=== PATIENT | male | born 1975 | race Caucasian/White ===

== ENCOUNTER 2024-01-13 19:55 | Observation (INO) ==
--- OUTSIDE RECORDS SUMMARY | 2024-01-13 20:01 | External Medical Summary | Continuity of Care Document ---
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 Role Phone No, PCP Primary Care Physician Unavailab le Encounter [facility] [id number] Date(s): 09/25/23 - 09/25/23 [facility] [address] [facility] [address] [facility] Medicine [address] [place] [id number] Encounter Diagnosis S/P left rotator cuff repair(Discharge Diagnosis) - 09/25/23 Discharge Disposition: Home or Self Care Attending Physician: MD Tabor Paul K Allergies, Adverse Reactions, Alerts No Known Allergies Assessment and Plan Extracted from: Title:Randy Tabor Author:Eulalio Ge Date:09/25/23 IMPRESSION:48 Yearsold Male s/p left shoulder arthroscopy, rotator cuff repair, biceps tenodesis DOS: 08/08/2023. PLAN: - Arthroscopic images were reviewed with the patient at today's visit - Continue with rehab per protocol - May discontinue use of sling. Use sling in high risk situations. - Patient is restricted on lifting activities for next 6-8 weeks. - Patient should continue off work. Re-evaluate in 6 weeks. - ATIYA Shaw was present for the duration of the visit. All questions were answered -Follow up in 6 weeks Medications No Known Medications Mental Status 09/25/23 Barriers to Learning one year None evide nt Mandatory Health Literacy Documentation Yes Health Literacy Communication Barriers N ever Primary Language Greenlandic Problem List Condition Confirmation Course Effective Dates Status Health St [facility] Informant Dystonic tremor Confirmed Active MRSA 1 Confirmed 05/29/11 Active Preop examination Confirmed Active Left rotator cuff tear Confirmed Active 1abscess Diagnosis Diagnosis Type Effective Dates Health Status Cl inical Service Informant S/P left rotator cuff repair Discharge Diagnosis 09/25/23 Procedures Procedure Date Related Diagnosis Body Site Status Eye repair 1 Completed Repair of retina Complete d 1bilateral Social History Social History Type Response Smoking Status Never smoked cigaret graham Sex Male Ortho Outpt Note * Eulalio Ge: PERFORM, MODIFY Event Display: Ortho Outpt Note Authored Date: [id number] Chief Complaint s/p L shoulder History of Present Illness Tala Myers presents today with hisNCMforf/u s/pleft shoulder arthroscopy, rotator cuff repair, biceps tenodesis DOS: 08/08/2023. He is doing well. He has not had pain or swelling. He has tightness and a dull ache in his shoulder. His ROM full according to the patient for the last 3 weeks. He is no loner taking medications. Overall, he is doing well and pleased with his progression. Review of Systems A 14 point review of systems isavailable in the EMR. Physical Exam Focusing onthe patient'sleft upper extremity: Sensation intact to the median, radial, ulnar, and axillary nerve distributions. Incisions are well healed ROM: Forward flexion 170 vs 180 / External rotation 80/ Internal rotation L2 vs T10 Diagnostic Results I obtained and personally interpreted4 views of theright shoulder which shows the hardware in good position and an otherwise normal study. Assessment/Plan IMPRESSION:48 YearsoldMale s/p left shoulder arthroscopy, rotator cuff repair, biceps tenodesis DOS: 08/08/2023. PLAN: - Arthroscopic images were reviewed with the patient at today's visit - Continue with rehab per protocol - May discontinue use of sling. Use sling in high risk situations. - Patient is restricted on lifting activities for next 6-8 weeks. - Patient should continue off work. Re-evaluate in 6 weeks. - ATIYA Shaw was present for the duration of the visit. All questions were answered -Follow up in 6 weeks Attestation IEulalio, scribing for and in the presence of, Randy Tabor, on this date,09/25/2023 11:04:13. Problem List/Past Medical History Ongoing Dystonic tremor Left rotator cuff tear MRSA Preop examination Procedure/Surgical History Repair of retinaEye repair Medications carbidopa-levodopa(Sinemet 25 mg-100 mg oral tablet), 2 tab, PO, tid, 6 refills diclofenac(diclofenac sodium 75 mg oral delayed release tablet), 75 mg= 1 tab, PO, bid, PRN, 1 refills oxyCODONE(oxyCODONE 5 mg oral tablet), 5 mg= 1 tab, PO, q4h, PRN Allergies NKA Social History Smoking Status Never smoked cigarettes Family History COPD: PGF. Parkinson disease: PGM.Negative: PGF. Health Status Family Member(s) Recommendations Health Maintenance Pending(in the next year) OverDue Adult Influenza Vaccine due01/05/23and every 1year Due Adult COVID-19 Vaccination due09/25/23Unknown Frequency Adult Social Determinants of Health Screening due09/25/23Unknown Frequency Adult Tdap/Td Vaccine due09/25/23nown Frequency Colorectal Cancer Screening due09/25/23nown Frequency Hepatitis C Screening due09/25/23One-time only Lipid Screening due09/25/23nown Frequency Shingles Vaccine due09/25/23One-time only Due In Future Body Mass Index not due until08/07/24and every 366day Satisfied(in the past 1 year) Satisfied Body Mass Index on08/07/23.Satisfied by HEMALATHA Jones Natasha Electronic Signature on File Electronically Reviewed/Signed by: Eulalio Ge Author Signature Dt/Tm:09/25/2023 11:33 AM Electronically Reviewed/Signed by: Randy Tabor MD Cosigner Signature Dt/Tm: 09/25/2023 12:19PM Division of Sports Medicine DS Patient Care team information Care Team Related Persons Name: BOBBY COHEN Address: [employer] [address] [place] [address]
--- OUTSIDE RECORDS SUMMARY | 2024-01-13 20:01 | External Medical Summary | Continuity of Care Document ---
Author Name Unknown Organization 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 [address] [address] [facility] Medicine [address] [place] [phone] Encounter Diagnosis S/P left rotator cuff repair(Discharge Diagnosis) - 12/04/23 Discharge Disposition: Home or Self Care Attending Physician: MD Tabor Paul K Allergies, Adverse Reactions, Alerts No Known Allergies Assessment and Plan Extracted from: Title:Randy Tabor Author:Eulalio Ge Date:12/04/23 IMPRESSION:48 Yearsold Male s/pleft shoulder arthroscopy, rotator cuff repair, biceps tenodesis DOS: 08/08/2023. PLAN: - Continue with rehab per protocol focusing on ROM and strengthening. - Patient may do light work with a 20 lbs lifting restriction. Follow up in 2 months. Medications No Known Medications Mental Status 12/04/23 Barriers to Learning one year None evide nt Mandatory Health Literacy Documentation Yes Health Literacy Communication Barriers N ever Primary Language Serbian Problem List Condition Confirmation Course Effective Dates Status Health [facility] Informant Dystonic tremor Confirmed Active MRSA 1 Confirmed 05/29/11 Active Preop examination Confirmed Active Left rotator cuff tear Confirmed Active 1abscess Diagnosis Diagnosis Type Effective Dates Health Status Cl inical Service Informant S/P left rotator cuff repair Discharge Diagnosis 12/04/23 Procedures Procedure Date Related Diagnosis Body Site Status Eye repair 1 Completed Repair of retina Complete d 1bilateral Social History Social History Type Response Smoking Status Never smoked cigaret graham Sex Male Ortho Outpt Note * Eulalio Ge: PERFORM, MODIFY Event Display: Ortho Outpt Note Authored Date: [id number] Chief Complaint f/u l shoulder History of Present Illness Tala Myers presents today with his NCM for f/u s/pleft shoulder arthroscopy, rotator cuff repair, biceps tenodesis DOS: 08/08/2023. He just started strengthening his RTC at PT. He has some tightness and limited strength at this time. He notes that his discomfort is more fatigue than pain. He is working with PT twice a week as well as a HEP. Overall, he is doing well. Review of Systems A 14 point review of systems isavailable in the EMR. Physical Exam Focusing onthe patient'sleft upper extremity: Sensation intact to the median, radial, ulnar, and axillary nerve distributions. Incisions are well healed ROM: Forward flexion 175 vs 185 / Abduction 140 / External rotation 70, vs75 / [id number] vs T6 At 90 degrees of abduction, internal rotation is50 vs 70 5-/5 strength with external rotation with arm at the side 5-/5 strength with internal rotation with arm at the side 5-/5 supraspinatus testing Minimal atrophy Assessment/Plan IMPRESSION:48 YearsoldMale s/pleft shoulder arthroscopy, rotator cuff repair, biceps tenodesis DOS: 08/08/2023. PLAN: - Continue with rehab per protocol focusing on ROM and strengthening. - Patient may do light work with a 20 lbs lifting restriction. Follow up in 2 months. Attestation I, Eulalio Ge, scribing for and in the presence of, Randy Tabor, on this date,12/04/2023 15:15:38. Problem List/Past Medical History Ongoing Dystonic tremor Left rotator cuff tear MRSA Preop examination Procedure/Surgical History Repair of retinaEye repair Allergies NKA Social History Smoking Status Never smoked cigarettes Family History COPD: PGF. Parkinson disease: PGM.Negative: PGF. Health Status Family Member(s) Recommendations Health Maintenance Pending(in the next year) OverDue Adult Influenza Vaccine due01/05/23and every 1year Due Adult COVID-19 Vaccination due12/04/23Unknown Frequency Adult Social Determinants of Health Screening due12/04/23Unknown Frequency Adult Tdap/Td Vaccine due12/04/23Unknown Frequency Colorectal Cancer Screening due12/04/23Unknown Frequency Hepatitis C Screening due12/04/23One-time only Lipid Screening due12/04/23Unknown Frequency Shingles Vaccine due12/04/23One-time only Due In Future Body Mass Index not due until08/07/24and every day Satisfied(in the past 1 year) Satisfied Body Mass Index on08/07/23.Satisfied by HEMALATHA Jones Natasha Electronic Signature on File Electronically Reviewed/Signed by: Eulalio Ge Author Signature Dt/Tm:12/04/2023 03:26 PM Electronically Reviewed/Signed by: Randy Tabor MD Cosigner Signature Dt/Tm: 12/05/2023 09:45AM Division of Sports Medicine DS Patient Care team information Care Team Related Persons Name: BOBBY COHEN Address: [facility] [address] [place] [address]
--- OUTSIDE RECORDS SUMMARY | 2024-01-13 20:01 | External Medical Summary | Continuity of Care Document ---
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 Name Role Phone No, PCP Primary Care Physician Unavailab le Encounter [facility] [id number] Date(s): 11/06/23 - 11/06/23 [facility] [address] [address] [facility] Medicine [address] [place] [id number] Encounter Diagnosis S/P rotator cuff repair(Discharge Diagnosis) - 11/06/23 Discharge Disposition: Home or Self Care Attending Physician: MD Tabor Paul K Allergies, Adverse Reactions, Alerts No Known Allergies Assessment and Plan Extracted from: Title:Randy Tabor Author:Eulalio Ge Date:11/06/23 IMPRESSION:48 Yearsold Male s/pleft shoulder arthroscopy, rotator cuff repair, biceps tenodesis DOS: 08/08/2023. PLAN: - Continue with formal PT and massaging as previous. - Patient is limited to sedentary job duties if able to be accommodated. Follow up in 1 month Medications No Known Medications Mental Status 11/06/23 Barriers to Learning one year None evide nt Mandatory Health Literacy Documentation Yes Health Literacy Communication Barriers N ever Primary Language Lao Problem List Condition Confirmation Course Effective Dates Status Health St [facility] Informant Dystonic tremor Confirmed Active MRSA 1 Confirmed 05/29/11 Active Preop examination Confirmed Active Left rotator cuff tear Confirmed Active 1abscess Diagnosis Diagnosis Type Effective Dates Health Status Cl inical Service Informant S/P rotator cuff repair Discharge Diagnosis 11/06/23 Procedures Procedure Date Related Diagnosis Body Site Status Eye repair 1 Completed Repair of retina Complete d 1bilateral Social History Social History Type Response Smoking Status Never smoked cigaret graham Sex Male Ortho Outpt Note * Eulalio Ge: PERFORM, MODIFY Event Display: Ortho Outpt Note Authored Date: [id number] Chief Complaint f/u L shoulder History of Present Illness Tala Myers presents today with his NCMforf/u s/pleft shoulder arthroscopy, rotator cuff repair, biceps tenodesis DOS: 08/08/2023. he is doing better but stillhas some tightness from his surgery. He is still limited with his internal rotation. He has been working with formal PT twice a week. He never has serious pain just tiredness and tightness. He has not taken any medication for his pain. Review of Systems A 14 point review of systems isavailable in the EMR. Physical Exam Focusing onthe patient'sleft upper extremity: Sensation intact to the median, radial, ulnar, and axillary nerve distributions. Incisions are well healed ROM: Forward flexion 170/ Abduction 140 / External rotation 65, vs 80 / Internal rotation L4 vs T6/ Passive ER to 75 / Passive forward elevation to 175 / Passive abduction 160 5-/5 strength with external rotation with arm at the side 5/5 strength with internal rotation with arm at the side Pain with empty can test + Tenderness over the trapezius Assessment/Plan IMPRESSION:48 YearsoldSome s/pleft shoulder arthroscopy, rotator cuff repair, biceps tenodesis DOS: 08/08/2023. PLAN: - Continue with formal PT and massaging as previous. - Patient is limited to sedentary job duties if able to be accommodated. Follow up in 1 month Attestation Eulalio Horn, scribing for and in the presence of, Randy Tabor, on this date,11/06/2023 11:29:30. Problem List/Past Medical History Ongoing Dystonic tremor Left rotator cuff tear MRSA Preop examination Procedure/Surgical History Repair of retinaEye repair Allergies NKA Social History Smoking Status Never smoked cigarettes Family History COPD: PGF. Parkinson disease: PGM.Negative: PGF. Health Status Family Member(s) Recommendations Health Maintenance Pending(in the next year) OverDue Adult Influenza Vaccine due01/05/23and every 1year Due Adult COVID-19 Vaccination due11/06/23Unknown Frequency Adult Social Determinants of Health Screening due11/06/23Unknown Frequency Adult Tdap/Td Vaccine due11/06/23Unknown Frequency Colorectal Cancer Screening due11/06/23Unknown Frequency Hepatitis C Screening due11/06/23One-time only Lipid Screening due11/06/23Unknown Frequency Shingles Vaccine due11/06/23One-time only Due In Future Body Mass Index not due until08/07/24and every day Satisfied(in the past 1 year) Satisfied Body Mass Index on08/07/23.Satisfied by HEMALATHA Jones Natasha Electronic Signature on File Electronically Reviewed/Signed by: Eulalio Ge Author Signature Dt/Tm:11/06/2023 11:43 AM Electronically Reviewed/Signed by: Randy Tabor MD Cosigner Signature Dt/Tm: 11/06/2023 12:34PM Division of Sports Medicine DS Patient Care team information Care Team Related Persons Name: BOBBY COHEN Address: [facility] [address] [place]
[2024-01-13 20:45] LABS: Appearance Urine Turbid (Clear); Bacteria Urine Automated None Seen (None Seen); Bilirubin Urine 1+ (Negative); Blood Urine 3+ (Negative); Cast Urine Automated 0-2 /lpf (0-2); Color Urine Orange; Epithelial Cell Urine Auto 0-2 /hpf (0-2); Glucose Urine UA Negative (Negative); Ketones Urine Trace (Negative); Leukocyte Esterase Urine 1+ (Negative); Mucus Urine Present (None Prsent); Nitrite Urine Negative (Negative); Protein Urine 2+ (Negative); RBC Urine Automated >20 /hpf (0-2); Specific Gravity Urine 1.029 (1.000-1.030); Urobilinogen Urine Negative (Negative); pH Urine 5.5 (4.5-7.5)
[2024-01-13 21:01] LABS: Basophils # (auto) 0.04 K/uL (0.00-0.20); Basophils % (auto) 0.4 %; Eosinophils # (auto) 0.04 K/uL (0.00-0.50); Eosinophils % (auto) 0.4 %; Hematocrit (blood only) 46.9 % (42.0-52.0); Hemoglobin 15.9 g/dl (14.0-18.0); Immature Granulocytes # (auto) 0.02 K/uL (0.01-0.20); Immature Granulocytes % (auto) 0.2 %; Lymphocytes # (auto) 1.44 K/uL (1.20-3.40); Lymphocytes % (auto) 15.4 %; Mean Corpuscular Hemoglobin 30.8 pg (25.0-34.0); Mean Corpuscular Hgb Conc 33.9 g/dL (32.0-36.0); Mean Corpuscular Volume 90.7 fL (80.0-100.0); Mean Platelet Volume 9.5 fL (9.4-12.4); Monocytes # (auto) 0.57 K/uL (0.11-0.59); Monocytes % (auto) 6.1 %; Neutrophils # (auto) 7.25 K/uL (1.40-6.50); Neutrophils % (auto) 77.5 %; Platelet Count 234 K/uL (130-400); RDW Coefficient of Variation 11.8 % (11.5-14.5); RDW Standard Deviation 39.3 fL (36.4-46.3); Red Blood Count 5.17 M/uL (4.70-6.10); White Blood Count 9.36 K/ul (4.8-10.8)
[2024-01-13] MEDS: ONDANSETRON INJ 2 MG/ML 2 ML VIAL IV STA (21:02)
[2024-01-13] MEDS: MoRPHine SULFATE 4 MG/ML 1 ML CARP\\VIAL IV STA (21:02)
[2024-01-13] MEDS: SODIUM CHLORIDE 0.9% 1,000 ML IV ONE (21:02)
[2024-01-13 21:17] LABS: Albumin Level 4.9 gm/dl (3.4-5.0); BUN Creatinine Ratio 7.7 (10-20); Bilirubin,Total 0.8 mg/dl (0.2-1.0); Calcium 9.8 mg/dl (8.6-10.3); Creatinine Clr Calc Pharmacy 55.7 ml/min; Est GFR (African American) 59.6 ml/min; Est GFR (Non-African American) 51.4 ml/min; Globulin 2.5 gm/dl (2.5-4.0); Potassium 3.9 mmol/L (3.5-5.1); Total Protein 7.4 gm/dl (6.0-8.3)
[2024-01-13] MEDS: fentaNYL citrate PF 100 MCG/2 ML VIAL IV STA (21:34)
--- NOTE | 2024-01-13 21:39 | Emergency Department Note ---
Impression & Plan Acute left flank pain, Calculus of distal left ureter, Complicated urinary tract infection, Hydroureteronephrosis, AMIRAH (acute kidney injury) ED Provider Note HISTORY OF PRESENT ILLNESS: Patient is a 48-year-old male presenting with left flank pain. Patient reports symptoms started yesterday. He locates the pain to the left lower quadrant with radiation into his left CVA and across his back. He reports this feels like his previous kidney stone but "significantly more painful than before." He reports nausea but denies any vomiting. Reports dysuria but denies any hematuria. He denies requiring any surgical interventions for his previous kidney stones. He denies any fevers. Denies any history of abdominal surgeries. Patient denies any diarrhea. Denies any falls or recent back injury. ROS: as above PHYSICAL EXAM: Constitutional: Patient appears in no acute distress. HENT: Head: Normocephalic and atraumatic. Eyes: EOMI, PERRL Mouth/Throat: Mucous membranes moist. Neck: Trachea midline. Neck supple. Cardiovascular: RRR, No murmurs, rubs or gallops. Intact distal pulses. Pulmonary/Chest: No respiratory distress. Breath sounds clear and equal bilaterally. No wheezes or rales. Abdominal: Abdomen soft, no tenderness, rebound or guarding. Back: No midline spinal tenderness, no paraspinal tenderness. Left CVA tenderness Musculoskeletal: No edema, tenderness or deformity noted. Skin: Warm and dry. No rash, erythema, pallor or cyanosis Neurological: Alert and keenly responsive. CN II-XII grossly intact, moving all extremities equally and fully. MDM: - Vitals signs stable - History obtained via patient. History as above. - Chronic conditions affecting care: Kidney stone - Differential diagnoses include, but are not limited to: UTI; ureteral stone; diverticulitis; muscle spasm - Order placed for continuous cardiac monitoring. At this time, monitor showed rate of 60 bpm with normal sinus rhythm, per my interpretation. - External medical records reviewed. Primary care visit note dated 08/17/2023 was reviewed. Patient was seen for an acute visit for upper respiratory infection. - Laboratory workup interpreted by myself showed normal WBC; stable electrolytes; AMIRAH (Cr 1.55); normal lipase; normal liver function - UA showed blood and evidence of infection. 2g IV rocephin ordered. - CT abdomen/pelvis wo contrast showed 5 mm stone in distal left ureter with mild left hydroureteronephrosis. - Patient initially given 4 mg IV morphine, 4 mg IV zofran and 1L NS in ER. However, on reassessment, the patient was still complaining of significant pain. Given 50 mcg of IV fentanyl. - On reassessment, patient reports feeling improved but still having some discomfort. - Discussed case with urology ARABELLA on-call, Oli Shah. He agreed with IV antibiotics and admission to medicine and urology will be on his consultation. - Discussion was had with case therapist about patient's case and need for admission - Hospitalist consulted for admission - Patient admitted to [facility] service for further evaluation and management. ASSESSMENT AND PLAN: Diagnosis: Acute left flank pain; distal left ureteral stone; left hydroureteronephrosis; complicated UTI; AMIRAH Plan: Admit Past Med/Surg History Problem List (Updated 01/13/24 @ 23:20 by Genevieve Billy MD) AMIRAH (acute kidney injury) (Acute) Hydroureteronephrosis (Acute) Complicated urinary tract infection (Acute) Calculus of distal left ureter (Acute) Acute left flank pain (Acute) S/P left rotator cuff repair 08-08-23 [facility], Dr Tabor Occasional tremors Medical History (Updated 01/13/24 @ 23:20 by Genevieve Billy MD) Kidney stones no sx, still has them currently Encounter for pre-operative examination Surgical History Hx of arthroscopy of right knee Hx of arthroscopy of left knee History of eye surgery multiple-yrs ago Social History Smoking Status: Never smoker Second Hand Exposure: No; Do You Dip or Chew Tobacco: No; Hx Alcohol Use: Yes Alcohol type: beer, wine and hard liquor Hx Substance Use: No Preferred Language: Tristanian Communication Ability: Effective Jeep Driver Required: No Beliefs That Will Affect Care: None Current Living Situation: Parent Feels Safe at Home: Yes Assistive Devices: None Allergies Allergies Allergy/AdvReac Type Severity Reaction Status Date / Time No Known Drug Allergies Allergy Mild Unknown Verified 01/13/24 22:00 Home Meds Home Medications Medication Instructions Recorded Confirmed No Known Home Medications 01/13/24 01/13/24 Results & Data (ED) Vital Signs Vital Signs - 24 hr 01/13/24 20:04 01/13/24 22:01 Temperature 36.6 C Temperature Source Oral Pulse Rate 60 Pulse Rate [Finger] 70 Respiratory Rate 18 16 Blood Pressure 129/81 Blood Pressure [Left Arm] 138/86 Blood Pressure Mean 97 Blood Pressure Mean [Left Arm] 103 Pulse Oximetry 97 95 Oxygen Delivery Method Room Air Room Air Sepsis Recent Fever Within 48 Hours No Sepsis New/Unexplained Change in Mental Status No Sepsis Action Taken by Nursing No Action Required Laboratory Data 01/13/24 20:50 01/13/24 20:50 Lab Results 01/13/24 01/13/24 Range/Units 20:10 20:50 WBC 9.36 (4.8-10.8) K/ul RBC 5.17 (4.70-6.10) M/uL Hgb 15.9 (14.0-18.0) g/dl Hct 46.9 (42.0-52.0) % MCV 90.7 (80.0-100.0) fL MCH 30.8 (25.0-34.0) pg MCHC 33.9 (32.0-36.0) g/dL RDW Std Deviation 39.3 (36.4-46.3) fL RDW Coeff of En 11.8 (11.5-14.5) % Plt Count 234 (130-400) K/uL MPV 9.5 (9.4-12.4) fL Immature Gran % (Auto) 0.2 % Neut % (Auto) 77.5 % Lymph % (Auto) 15.4 % [place] % (Auto) 6.1 % Eos % (Auto) 0.4 % Baso % (Auto) 0.4 % Neut # (Auto) 7.25 H (1.40-6.50) K/uL Lymph # (Auto) 1.44 (1.20-3.40) K/uL [place] # (Auto) 0.57 (0.11-0.59) K/uL Eos # (Auto) 0.04 (0.00-0.50) K/uL Baso # (Auto) 0.04 (0.00-0.20) K/uL Immature Gran # (Auto) 0.02 (0.01-0.20) K/uL Sodium 138 (136-145) mmol/L Potassium 3.9 (3.5-5.1) mmol/L Chloride 103 (98-107) mmol/L Carbon Dioxide 28 (21-32) mmol/L Anion Gap 7 (3-11) BUN 12 (6-23) mg/dl Creatinine 1.55 H (0.6-1.4) mg/dl Est Cr Clr Drug Dosing 55.7 ml/min Est GFR ( Amer) 59.6 ml/min Est GFR (Non-Af Amer) 51.4 ml/min BUN/Creatinine Ratio 7.7 L (10-20) Glucose 118 H (70-99(Fasting)) mg/dl Calcium 9.8 (8.6-10.3) mg/dl Total Bilirubin 0.8 (0.2-1.0) mg/dl AST 14 (13-39) U/L ALT 9 (7-52) U/L Alkaline Phosphatase 39 (34-104) U/L Total Protein 7.4 (6.0-8.3) gm/dl Albumin 4.9 (3.4-5.0) gm/dl Globulin 2.5 (2.5-4.0) gm/dl Albumin/Globulin Ratio 2.0 (0.9-2) Lipase 21 (11-82) U/L Urine Color [place] Urine Appearance Turbid A (Clear) Urine pH 5.5 (4.5-7.5) Ur Specific [place] 1.029 (1.000-1.030) Urine Protein 2+ H (Negative) Urine Glucose (UA) Negative (Negative) Urine Ketones Trace H (Negative) Urine Blood 3+ H (Negative) Urine Nitrite Negative (Negative) Urine Bilirubin 1+ H (Negative) Urine Urobilinogen Negative (Negative) Ur Leukocyte Esterase 1+ H (Negative) Urine WBC (Auto) 11-20 H (0-5) /hpf Urine RBC (Auto) >20 H (0-2) /hpf U Hyaline Cast (Auto) 0-2 (0-2) /lpf U Epithel Cells (Auto) 0-2 (0-2) /hpf Urine Bacteria (Auto) None Seen (None Seen) Urine Mucus Present A (None Prsent) Administered Medications Ceftriaxone Sodium (Rocephin) 2,000 mg in 50 mls @ 100 mls/hr IV NOW STA Stop: 01/13/24 23:20 Last Admin: 01/13/24 23:00 Dose: 100 mls/hr Documented By: CASTRO Discontinued Medications Fentanyl Citrate (Fentanyl Citrate Pf 100 Mcg/2 Ml Vial) 50 mcg IV NOW STA Stop: 01/13/24 21:31 Last Admin: 01/13/24 21:34 Dose: 50 mcg Documented By: GEOVANY Sodium Chloride (Nss) 1,000 mls @ 999 mls/hr IV .Q1H1M ONE Stop: 01/13/24 21:52 Last Infusion: 01/13/24 22:03 Dose: Infused Documented By: Admin: 01/13/24 21:02 Dose: 999 mls/hr Documented By: MADISON Morphine Sulfate (Morphine Sulfate 4 Mg/Ml 1 Ml Carp\\Vial) 4 mg IV NOW STA Stop: 01/13/24 20:53 Last Admin: 01/13/24 21:02 Dose: 4 mg Documented By: MADISON Ondansetron HCl (Ondansetron Inj 2 Mg/Ml 2 Ml Vial) 4 mg IV NOW STA Stop: 01/13/24 20:53 Last Admin: 01/13/24 21:02 Dose: 4 mg Documented By: MADISON Tamsulosin HCl (Tamsulosin Hcl 0.4 Mg Cap) 0.4 mg PO NOW ONE Stop: 01/13/24 22:52 Last Admin: 01/13/24 23:00 Dose: 0.4 mg Documented By: CASTRO Imaging Data Radiologist's Impression: Abdomen/Pelvis CT 01/13/24 20:54 Exam(s): CT ABDOMEN + PELVIS Without Contrast EXAM: CT Abdomen and Pelvis Without Intravenous Contrast CLINICAL HISTORY: Reason for exam: L flank pain. TECHNIQUE: Axial computed tomography images of the abdomen and pelvis without intravenous contrast. CTDI is 11.1 mGy and DLP is 536.65 mGy-cm. Automated exposure control was utilized for the study. A dose lowering technique was utilized adhering to the principles of ALARA. COMPARISON: 06/05/22 FINDINGS: Lung bases: Unremarkable. No mass. No consolidation. ABDOMEN: Liver: Unremarkable. Gallbladder and bile ducts: Unremarkable. No calcified stones. No ductal dilation. Pancreas: Unremarkable. No ductal dilation. Spleen: Unremarkable. No splenomegaly. Adrenals: Unremarkable. No mass. Kidneys and ureters: 5 mm distal left ureteral calculus with mild left hydroureteronephrosis. Multiple subcentimeter nonobstructing renal calculi bilaterally demonstrated. Stomach and bowel: Unremarkable. No obstruction. No mucosal thickening. PELVIS: Appendix: No findings to suggest acute appendicitis. Bladder: Unremarkable. No stones. Reproductive: Unremarkable as visualized. ABDOMEN and PELVIS: Intraperitoneal space: Unremarkable. No free air. No significant fluid collection. Bones/joints: No acute fracture. No dislocation. Soft tissues: Unremarkable. Vasculature: Unremarkable. No abdominal aortic aneurysm. Lymph nodes: Unremarkable. No enlarged lymph nodes. Other findings: Severe L5-S1 disc space narrowing. IMPRESSION: 5 mm distal left ureteral calculus with mild left hydroureteronephrosis. Electronically signed by: Boo Callahan MD 01/13/24 22:44 PM Discharge Plan Visit Data Chief Complaint: Flank Pain Stated Complaint: FLANK PAIN, LEFT SIDE ED Provider: Genevieve Billy Discharge Problem: Acute left flank pain, Calculus of distal left ureter, Complicated urinary tract infection, Hydroureteronephrosis, AMIRAH (acute kidney injury) Forms Stand Alone Forms: [facility] [employer] Prescriptions Prescriptions: No Action No Known Home Medications Referrals Referrals: Keven Jefferson DO [Primary Care Provider] -
--- NOTE | 2024-01-13 22:45 | CT Scan Report ---
Exam(s): CT ABDOMEN + PELVIS Without Contrast EXAM: CT Abdomen and Pelvis Without Intravenous Contrast CLINICAL HISTORY: Reason for exam: L flank pain. TECHNIQUE: Axial computed tomography images of the abdomen and pelvis without intravenous contrast. CTDI is 11.1 mGy and DLP is 536.65 mGy-cm. Automated exposure control was utilized for the study. A dose lowering technique was utilized adhering to the principles of ALARA. COMPARISON: 06/05/22 FINDINGS: Lung bases: Unremarkable. No mass. No consolidation. ABDOMEN: Liver: Unremarkable. Gallbladder and bile ducts: Unremarkable. No calcified stones. No ductal dilation. Pancreas: Unremarkable. No ductal dilation. Spleen: Unremarkable. No splenomegaly. Adrenals: Unremarkable. No mass. Kidneys and ureters: 5 mm distal left ureteral calculus with mild left hydroureteronephrosis. Multiple subcentimeter nonobstructing renal calculi bilaterally demonstrated. Stomach and bowel: Unremarkable. No obstruction. No mucosal thickening. PELVIS: Appendix: No findings to suggest acute appendicitis. Bladder: Unremarkable. No stones. Reproductive: Unremarkable as visualized. ABDOMEN and PELVIS: Intraperitoneal space: Unremarkable. No free air. No significant fluid collection. Bones/joints: No acute fracture. No dislocation. Soft tissues: Unremarkable. Vasculature: Unremarkable. No abdominal aortic aneurysm. Lymph nodes: Unremarkable. No enlarged lymph nodes. Other findings: Severe L5-S1 disc space narrowing. IMPRESSION: 5 mm distal left ureteral calculus with mild left hydroureteronephrosis. Electronically signed by: Boo Callahan MD 01/13/24 22:44 PM
[2024-01-13] MEDS: cefTRIAXone SODIUM 2,000 MG/50 ML BAG IV STA (23:00)
[2024-01-13] MEDS: TAMSULOSIN HCL 0.4 MG CAP PO ONE (23:00)
--- NOTE | 2024-01-13 23:05 | Urology Consultation ---
Date of Consultation January 13, 2024 Assessment & Plan (1) Kidney stones: I discussed with treat emergency room physician and the patient is being admitted on the hospital service. From a urologic perspective we recommend the following: Provide analgesics Provide antiemetics Provide Flomax for expulsive therapy Provide IV fluid for hydration Implement n.p.o. status at midnight tonight Due to his abnormal urinalysis he has been treated empirically with Rocephin. This can continue and antibiotics be tailored based on pending culture results At the present time the patient is nontoxic-appearing. He is noted to be normotensive without tachycardia or fever. He does not have leukocytosis. He does have a slight acute kidney injury. I do feel conservative measures as outlined above are an appropriate course of action. As the stone is noted to be distal in nature hopefully will pass on its own. The patient will be reevaluated in the morning of 01/14/2024 and determination be made if patient requires any procedural intervention. Additional recommendations to be forthcoming based on his clinical course as it unfolds History of Present Illness Reason for Consultation: Nephrolithiasis History of Present Illness This 48-year-old male who presented the emergency department secondary to left flank pain. He notes that the pain has been present for approximate 24 hours. He has had associated nausea without vomiting. He denies any fevers, shakes, or chills. He notes that the pain does radiate to the front of his abdomen without modifying factors. He notes he does not have any dysuria or hematuria. He has had kidney stones in the past but says that he was able to pass this on his own without procedural intervention. Since arrival to the hospital the patient has had labs and imaging which independent reviewed. CT scan of the abdomen pelvis showed the patient had a 5 mm distal left ureteral stone causing mild left hydronephrosis. Labs included CBC her white blood cell count, hemoglobin, hematocrit, platelet count were all normal. Chemistry profile showed sodium and potassium as well as the BUN were normal. His creatinine had a slight elevation at 1.55. Urinalysis showed turbid urine with negative nitrites and 1+ leukocyte Estrace. He had 11-20 white blood cells per high-power field and no bacteria. At the time my interview he was resting comfortably in bed he was no distress. Allergies Allergy/AdvReac Type Severity Reaction Status Date / Time No Known Drug Allergies Allergy Mild Unknown Verified 07/07/24 22:00 Home Medications Medication Instructions Recorded Confirmed Type No Known Home Medications 01/13/24 01/13/24 History Patient History Medical History (Updated 01/13/24 @ 23:03 by Oli Shah PA-C) Kidney stones no sx, still has them currently Encounter for pre-operative examination Surgical History Hx of arthroscopy of right knee Hx of arthroscopy of left knee History of eye surgery multiple-yrs ago Social History Smoking Status: Never smoker Second Hand Exposure: No; Do You Dip or Chew Tobacco: No; Hx Alcohol Use: Yes Alcohol type: beer, wine and hard liquor Hx Substance Use: No Preferred Language: Hebrew Communication Ability: Effective Last Ironer Required: No Beliefs That Will Affect Care: None Current Living Situation: Parent Feels Safe at Home: Yes Assistive Devices: None Review of Systems Review of Systems: All systems reviewed & are unremarkable except as noted in HPI & below Physical Exam Constitutional: WD/WN, vitals as above Eyes: no conjunctival abnormality ENMT: Ears: no hearing impairment and no external ear abnormality Mouth: no oropharynx abnormality Neck: trachea midline Respiratory: normal respiratory effort; no respiratory distress and no labored breathing Cardiovascular: Rate/Rhythm: regular rate and regular rhythm Gastrointestinal (Abdomen): Abdomen is soft and nonrigid. Patient did have some slight tenderness with palpation on the left side of his abdomen. There is no rebound tenderness or guarding. Musculoskeletal: No calf tenderness Skin: no rashes Neurologic: moves all extremities Psychiatric: A+Ox3, euthymic affect Genitourinary: No CVA tenderness with percussion noted bilaterally at the time of my exam Results & Data Vital Signs (Past 12 Hours) Vital Signs Temp Pulse Pulse Resp BP BP Pulse Ox 01/13/24 22:01 70 16 138/86 95 01/13/24 20:04 36.6 C 60 18 129/81 97 O2 Del Method 01/13/24 22:01 Room Air 01/13/24 20:04 Room Air PG Care Time/CCT Total # of Minutes Spent Total Time Spent with Patient: Total time spent is greater than 50% in coordination of care (as documented) at patient's floor/unit and/or counseling patient: Coding Level of Care Code 43775 IN/OBS CONSULT LVL 5,80M Diagnoses Kidney stones N20.0
--- NOTE | 2024-01-14 00:02 | History & Physical Report ---
Date of Service January 14, 2024 Assessment & Plan (1) Calculus of distal left ureter: (2) Hydroureteronephrosis: (3) Complicated urinary tract infection: (4) AMIRAH (acute kidney injury): Plan 5 mm distal left ureteral calculus/mild left hydroureteronephrosis/UTI- NPO except essential medications Follow urine culture and sensitivity Ceftriaxone 2 g IV daily with first dose given in the ED Acetaminophen 650 mg by mouth every 6 hours as needed for mild pain or fever Morphine sulfate 2 mg IV every 3 hours as needed for moderate pain Morphine sulfate 4 mg IV every 3 hours as needed for severe pain Zofran 4 mg IV every 6 hours as needed Tamsulosin 0.4 mg p.o. now, and at bedtime Status post 1 L normal saline bolus in the ED Continue NSS at 80 mL/h Consult urology, who has assessed the patient in the ED Acute kidney injury- Creatinine 1.55, with baseline 1.24 IV fluids as noted above Recheck laboratories in the a.m. History of Present Illness Chief Complaint: The patient presents to the emergency department with about 24 hours of persistent and worsening left flank and left lower quadrant pain similar to previous kidney stones, but more severe and persistent Primary Care Provider: Keven Jefferson DO The patient is a 48-year-old male with a past medical history including multiple kidney stones, occasional tremors, and status post left rotator cuff repair. The patient has had multiple kidney stones in the past, but has not required stenting. The symptoms developed about 24 hours ago, had been more severe in in tensity and duration. He reports that when he gets the symptoms in the past, he typically will take tamsulosin, and his symptoms would resolve. Allergies Allergy/AdvReac Type Severity Reaction Status Date / Time No Known Drug Allergies Allergy Mild Unknown Verified 01/13/24 22:00 Home Medications Medication Instructions Recorded Confirmed Type No Known Home Medications 01/13/24 01/13/24 History Past Med/Surg History Problem List (Updated 01/13/24 @ 23:20 by Genevieve Billy MD) AMIRAH (acute kidney injury) (Acute) Hydroureteronephrosis (Acute) Complicated urinary tract infection (Acute) Calculus of distal left ureter (Acute) Acute left flank pain (Acute) S/P left rotator cuff repair 08-08-23 [facility], Dr Tabor Occasional tremors Medical History (Updated 01/13/24 @ 23:20 by Genevieve Billy MD) Kidney stones no sx, still has them currently Encounter for pre-operative examination Surgical History Hx of arthroscopy of right knee Hx of arthroscopy of left knee History of eye surgery multiple-yrs ago Social History Smoking Status: Never smoker Tobacco Type: Smokeless Tobacco (Dip or Chew) Second Hand Exposure: No; Do You Dip or Chew Tobacco: Yes; Hx Alcohol Use: Yes Alcohol type: beer Hx Substance Use: No Preferred Language: Colombian Communication Ability: Effective Inspector Penetrant Required: No Beliefs That Will Affect Care: None Current Living Situation: Parent Feels Safe at Home: No Is there a partner from a previous relationship who is making you feel unsafe now?: No Any Concerns about Your Family Situation: No Would You Like to Speak to Someone About Your Situation: No Assistive Devices: None Review of Systems Review of Systems: The patient denies chest pain, palpitations, shortness of breath, dyspnea on exertion, cough, lower extremity swelling, sore throat, fevers, chills, sweats, weight change, fatigue, nausea, vomiting, diarrhea , constipation, blood in urine or stool, dysuria, urinary frequency or urgency, lightheadedness, dizziness, headache, memory loss, loss of consciousness, rash, abnormal bruising or bleeding, imbalance, focal or generalized weakness, numbness or tingling in arms or legs, generalized arthralgias or myalgias, neck pain, or night sweats. The review of systems is otherwise negative other than for that already noted above, and at least 10 systems have been reviewed. Physical Exam Physical Exam: The patient is awake, alert and oriented 3, well developed and well nourished, normocephalic and atraumatic, lying in bed and in no acute distress. HEENT--PERRL, EOMI, mucous membranes and oropharynx mildly dry. Neck--supple. No JVD. No bruits. Thyroid normal, trachea midline, no adenopathy. Heart--normal S1 and S2. No murmurs, rubs or gallops. Lungs--clear bilaterally, no respiratory distress, no accessory muscle use. Abdomen--normal bowel sounds and soft. Mild tenderness over left flank and left lower quadrant of abdomen. Nondistended Extremities--No edema. Dermatologic--normal skin turgor, normal color, no abnormal lymph nodes, no rash. Neurologic--cranial nerves II through XII grossly intact. Rheumatologic--normal range of motion. Psychiatric--normal affect. Results & Data Results & Data Vital Signs (Past 12 Hours) Vital Signs Temp Pulse Pulse Resp BP BP Pulse Ox 01/13/24 22:01 70 16 138/86 95 01/13/24 20:04 36.6 C 60 18 129/81 97 O2 Del Method 01/13/24 22:01 Room Air 01/13/24 20:04 Room Air Laboratory Results Laboratory Results WBC 9.36 K/ul (4.8-10.8) 01/13/24 20:50 RBC 5.17 M/uL (4.70-6.10) 01/13/24 20:50 Hgb 15.9 g/dl (14.0-18.0) 01/13/24 20:50 Hct 46.9 % (42.0-52.0) 01/13/24 20:50 MCV 90.7 fL (80.0-100.0) 01/13/24 20:50 MCH 30.8 pg (25.0-34.0) 01/13/24 20:50 MCHC 33.9 g/dL (32.0-36.0) 01/13/24 20:50 RDW Std Deviation 39.3 fL (36.4-46.3) 01/13/24 20:50 RDW Coeff of En 11.8 % (11.5-14.5) 01/13/24 20:50 Plt Count 234 K/uL (130-400) 01/13/24 20:50 MPV 9.5 fL (9.4-12.4) 01/13/24 20:50 Immature Gran % (Auto) 0.2 % 01/13/24 20:50 Neut % (Auto) 77.5 % 01/13/24 20:50 Lymph % (Auto) 15.4 % 01/13/24 20:50 [place] % (Auto) 6.1 % 01/13/24 20:50 Eos % (Auto) 0.4 % 01/13/24 20:50 Baso % (Auto) 0.4 % 01/13/24 20:50 Neut # (Auto) 7.25 K/uL (1.40-6.50) H 01/13/24 20:50 Lymph # (Auto) 1.44 K/uL (1.20-3.40) 01/13/24 20:50 [place] # (Auto) 0.57 K/uL (0.11-0.59) 01/13/24 20:50 Eos # (Auto) 0.04 K/uL (0.00-0.50) 01/13/24 20:50 Baso # (Auto) 0.04 K/uL (0.00-0.20) 01/13/24 20:50 Immature Gran # (Auto) 0.02 K/uL (0.01-0.20) 01/13/24 20:50 Sodium 138 mmol/L (136-145) 01/13/24 20:50 Potassium 3.9 mmol/L (3.5-5.1) 01/13/24 20:50 Chloride 103 mmol/L (98-107) 01/13/24 20:50 Carbon Dioxide 28 mmol/L (21-32) 01/13/24 20:50 Anion Gap 7 (3-11) 01/13/24 20:50 BUN 12 mg/dl (6-23) 01/13/24 20:50 Creatinine 1.55 mg/dl (0.6-1.4) H 01/13/24 20:50 Est Cr Clr Drug Dosing 55.7 ml/min 01/13/24 20:50 Est GFR ( Amer) 59.6 ml/min 01/13/24 20:50 Est GFR (Non-Af Amer) 51.4 ml/min 01/13/24 20:50 BUN/Creatinine Ratio 7.7 (10-20) L 01/13/24 20:50 Glucose 118 mg/dl (70-99(Fasting)) H 01/13/24 20:50 Calcium 9.8 mg/dl (8.6-10.3) 01/13/24 20:50 Total Bilirubin 0.8 mg/dl (0.2-1.0) 01/13/24 20:50 AST 14 U/L (13-39) 01/13/24 20:50 ALT 9 U/L (7-52) 01/13/24 20:50 Alkaline Phosphatase 39 U/L (34-104) 01/13/24 20:50 Total Protein 7.4 gm/dl (6.0-8.3) 01/13/24 20:50 Albumin 4.9 gm/dl (3.4-5.0) 01/13/24 20:50 Globulin 2.5 gm/dl (2.5-4.0) 01/13/24 20:50 Albumin/Globulin Ratio 2.0 (0.9-2) 01/13/24 20:50 Lipase 21 U/L (11-82) 01/13/24 20:50 Urine Color [place] 01/13/24 20:10 Urine Appearance Turbid (Clear) A 01/13/24 20:10 Urine pH 5.5 (4.5-7.5) 01/13/24 20:10 Ur Specific [employer] 1.029 (1.000-1.030) 01/13/24 20:10 Urine Protein 2+ (Negative) H 01/13/24 20:10 Urine Glucose (UA) Negative (Negative) 01/13/24 20:10 Urine Ketones Trace (Negative) H 01/13/24 20:10 Urine Blood 3+ (Negative) H 01/13/24 20:10 Urine Nitrite Negative (Negative) 01/13/24 20:10 Urine Bilirubin 1+ (Negative) H 01/13/24 20:10 Urine Urobilinogen Negative (Negative) 01/13/24 20:10 Ur Leukocyte Esterase 1+ (Negative) H 01/13/24 20:10 Urine WBC (Auto) 11-20 /hpf (0-5) H 01/13/24 20:10 Urine RBC (Auto) >20 /hpf (0-2) H 01/13/24 20:10 U Hyaline Cast (Auto) 0-2 /lpf (0-2) 01/13/24 20:10 U Epithel Cells (Auto) 0-2 /hpf (0-2) 01/13/24 20:10 Urine Bacteria (Auto) None Seen (None Seen) 01/13/24 20:10 Urine Mucus Present (None Prsent) A 01/13/24 20:10 Impressions Abdomen/Pelvis CT 01/13/24 20:54 Exam(s): CT ABDOMEN + PELVIS Without Contrast EXAM: CT Abdomen and Pelvis Without Intravenous Contrast CLINICAL HISTORY: Reason for exam: L flank pain. TECHNIQUE: Axial computed tomography images of the abdomen and pelvis without intravenous contrast. CTDI is 11.1 mGy and DLP is 536.65 mGy-cm. Automated exposure control was utilized for the study. A dose lowering technique was utilized adhering to the principles of ALARA. COMPARISON: 06/05/22 FINDINGS: Lung bases: Unremarkable. No mass. No consolidation. ABDOMEN: Liver: Unremarkable. Gallbladder and bile ducts: Unremarkable. No calcified stones. No ductal dilation. Pancreas: Unremarkable. No ductal dilation. Spleen: Unremarkable. No splenomegaly. Adrenals: Unremarkable. No mass. Kidneys and ureters: 5 mm distal left ureteral calculus with mild left hydroureteronephrosis. Multiple subcentimeter nonobstructing renal calculi bilaterally demonstrated. Stomach and bowel: Unremarkable. No obstruction. No mucosal thickening. PELVIS: Appendix: No findings to suggest acute appendicitis. Bladder: Unremarkable. No stones. Reproductive: Unremarkable as visualized. ABDOMEN and PELVIS: Intraperitoneal space: Unremarkable. No free air. No significant fluid collection. Bones/joints: No acute fracture. No dislocation. Soft tissues: Unremarkable. Vasculature: Unremarkable. No abdominal aortic aneurysm. Lymph nodes: Unremarkable. No enlarged lymph nodes. Other findings: Severe L5-S1 disc space narrowing. IMPRESSION: 5 mm distal left ureteral calculus with mild left hydroureteronephrosis. Electronically signed by: Boo Callahan MD 01/13/24 22:44 PM Code Status & VTE Plan Code Status Full code VTE Prophylaxis Plan VTE Prophylaxis will be ordered: Yes PG Care Time/CCT Total # of Minutes Spent Total Time Spent with Patient: Total time spent is greater than 50% in coordination of care (as documented) at patient's floor/unit and/or counseling patient: Coding Level of Care Code 67571 INT INP/OBS CARE 2/55MIN Diagnoses Calculus of distal left ureter N20.1 Hydroureteronephrosis N13.30 Complicated urinary tract infection N39.0 AMIRAH (acute kidney injury) N17.9
[2024-01-14] MEDS ORDERED: ONDANSETRON INJ 2 MG/ML 2 ML VIAL IV PRN (01:16)
[2024-01-14] MEDS ORDERED: ACETAMINOPHEN 325 MG TAB PO PRN (01:16)
[2024-01-14] MEDS ORDERED: MoRPHine SULFATE 2 MG/ML CARP IV PRN (01:16)
[2024-01-14] MEDS: SODIUM CHLORIDE 0.9% 1,000 ML IV SCH (01:33)
[2024-01-14] MEDS: MoRPHine SULFATE 4 MG/ML 1 ML CARP\\VIAL IV PRN (01:35)
[2024-01-14 07:25] VITALS: BP 90/54; PULSE 60; RESP 18; TEMP 97.5; O2SAT 95
[2024-01-14] MEDS: cefTRIAXone SODIUM 2,000 MG/50 ML BAG IV SCH (07:53)
[2024-01-14 08:29] LABS: Albumin Level 3.4 gm/dl (3.4-5.0); BUN Creatinine Ratio 10.1 (10-20); Est GFR (African American) 82.1 ml/min; Est GFR (Non-African American) 70.8 ml/min; Potassium 3.7 mmol/L (3.5-5.1)
--- NOTE | 2024-01-14 08:36 | Urology Progress Note ---
Date of Service January 14, 2024 Assessment & Plan (1) Calculus of distal left ureter: Plan: Follow-up of distal left ureteral calculus Afebrile, hemodynamically stable Labs reviewedcreatinine improved to 1.19, no leukocytosis Urine culture prelim with no growth Reports his pain is adequately controlled We discussed options for stone management including trial of passage versus surgical options We discussed left ureteral stent placement while inpatient with stone treatment at a later date versus outpatient surgical options if pain is controlled After discussion, he elects trial of passage and outpatient stone management Recommend discharge to home when medically stable with tamsulosin and analgesia as needed Will arrange outpatient follow-up with urology will sign off, please contact our service with any additional questions or concerns Admission and Anticipated Discharge Date Admission Date: January 14, 2024 Subjective Patient seen and examined at bedside No acute issues overnight Denies stone passage Pain is controlled Denies nausea, vomiting, fever or chills Voiding without difficulty Reports he has passed multiple stones in the past Review of Systems Constitutional: as per Subjective / HPI Genitourinary: + as per Subjective / HPI Physical Exam Constitutional: no acute distress Respiratory: normal respiratory effort; no respiratory distress and no labored breathing Gastrointestinal (Abdomen): Inspection/Auscultation: abdomen normal to inspe ction Musculoskeletal: Head/Neck/Chest: normocephalic Neurologic: moves all extremities and awake Psychiatric: Orientation: alert and oriented x 3 Results & Data Vital Signs (Past 12 Hours) Vital Signs Temp Pulse Resp BP Pulse Ox O2 Del Method 01/14/24 07:25 36.4 C L 60 18 90/54 L 95 Room Air 01/14/24 00:55 36.5 C 94 H 16 105/68 94 Room Air 01/13/24 22:01 70 16 138/86 95 Room Air PG Care Time/CCT Total # of Minutes Spent Total Time Spent with Patient: Total time spent is greater than 50% in coordination of care (as documented) at patient's floor/unit and/or counseling patient: Coding Level of Care Code 76413 SUB INP/OBS CARE 1/25MIN Diagnoses Calculus of distal left ureter N20.1
[2024-01-14] MEDS ORDERED: TAMSULOSIN HCL 0.4 MG CAP PO SCH (21:00)
--- NOTE | 2024-01-14 22:43 | Discharge Summary ---
Discharge Summary Date of Service January 14, 2024 Principal Dx & Hospital Course #1 = Principal Diagnosis (1) Calculus of distal left ureter: Patient presented with about 24 hours of persistent and worsening left flank and left lower quadrant pain similar to previous kidney stones, but more severe and persistent. - History of multiple kidney stones in the past, but has not required stenting. - CT A/P revealed 5 mm distal left ureteral calculus, mild left hydroureteronephrosis. - Given ceftriaxone in ED for suspected UTI. > Urine culture - preliminarily negative. Antibiotic discontinued. - Urology consulted > Discussed options for stone management including trial of passage versus surgical options > Discussed left ureteral stent placement while inpatient with stone treatment at a later date versus outpatient surgical options if pain is control led > Patient elected for trial of passage and outpatient stone management - Discharged on Flomax, Oxycodone PRN - Follow-up with urology outpatient. (2) AMIRAH (acute kidney injury): Creatinine 1.55, with baseline 1.24 Status post 1 L normal saline bolus in the ED with maintenance fluid continued while hospitalized. AMIRAH resolved, Cr 1.19 on 01/13 Plan CODE STATUS: Full code Notes For Next Care Provider Follow-up with urology outpatient for definitive stone management. Medication Changes From Visit Flomax Oxycodone PRN Admission HPI Per Admitting Provider The patient is a 48-year-old male with a past medical history including multiple kidney stones, occasional tremors, and status post left rotator cuff repair. The patient has had multiple kidney stones in the past, but has not required stenting. The symptoms developed about 24 hours ago, had been more severe in intensity and duration. He reports that when he gets the symptoms in the past, he typically will take tamsulosin, and his symptoms would resolve. Admission Exam Per Admitting Provider The patient is awake, alert and oriented 3, well developed and well nourished, normocephalic and atraumatic, lying in bed and in no acute distress. HEENT--PERRL, EOMI, mucous membranes and oropharynx mildly dry. Neck--supple. No JVD. No bruits. Thyroid normal, trachea midline, no adenopathy. Heart--normal S1 and S2. No murmurs, rubs or gallops. Lungs--clear bilaterally, no respiratory distress, no accessory muscle use. Abdomen--normal bowel sounds and soft. Mild tenderness over left flank and left lower quadrant of abdomen. Nondistended Extremities--No edema. Dermatologic--normal skin turgor, normal color, no abnormal lymph nodes, no rash. Neurologic--cranial nerves II through XII grossly intact. Rheumatologic--normal range of motion. Psychiatric--normal affect. Discharge Exam General: No acute distress, nondiaphoretic, well-developed, well-nourished. Cardiac: Regular rate and rhythm. No murmurs, rubs, or gallops. Pulm: Clear to auscultation bilaterally without wheezes, rales or rhonchi. No respiratory distress. Abdominal: Soft, nondistended. Bowel sounds present. Tender to palpation of LLQ and left flank. Neuro: A&O x3. No focal neurological deficits. Updated Medication List Medication Instructions Recorded Confirmed Type oxycodone 5 mg tablet 5 mg PO Q6H PRN pain #14 tabs 01/14/24 Rx tamsulosin 0.4 mg capsule 0.4 mg PO HS #21 caps 01/14/24 Rx Hospital Stay Data Consultations 01/13/24 23:12 ED Decision to Admit Stat Diagnostic Imagining Performed 01/13/24 20:54 CT Abd and Pelvis [CT abd pelvis wo con] Stat Pending Results Patient Have Any Pending Studies at Discharge: No Discharge Instructions Given to Patient (Per Discharging Provider) Mr. Luong, You were admitted to the hospital because of a left kidney stone with hydroureteronephrosis (swelling of your ureter/kidney). Your urine culture is negative (no urinary tract infection), so you do not need an antibiotic on discharge. You were evaluated by urology who discussed options for stone management. Since you have elected for outpatient stone treatment, you will follow-up with urology in their outpatient office. Your prescriptions have been sent to the [facility] pharmacy in [place]. Upon discharge from the hospital: * Take Flomax 0.4 mg daily. This is an alpha-alicia relaxes the muscles in your bladder, making it easier to pee and potentially pass the kidney stone. Take this until your urology follow-up appointment. * Alternate between Tylenol and ibuprofen as your first-line pain control. These are [id number] (OTC), so no prescription is required. * Take oxycodone 5 mg every 6 hours NEEDED for breakthrough pain. This is a narcotic pain medication. Do not drive or operate heavy machinery when taking this. * Use the urine strainer to strain your urine at home in case you pass the stone. Your nurse will provide you with a strainer prior to leaving the hospital. * Follow-up with urology outpatient. The urology office will call you with your appointment date and time. Please return to the hospital if you experience any of the following: Pain that is not controlled by the medicine given, repeated vomiting or unable to keep down fluids, fever of 100.4 F or higher, solid red or brown urine, urine with a lot of blood clots, foul-smelling or cloudy urine, unable to urinate for 8 hours with increasing bladder pressure, weakness, dizziness, passing out, chest pain, or difficulty breathing. It was a pleasure taking care of you while you were in the hospital, Breanna Chavez PA-C Total Time Total Time Spent Total Time Spent (In Minutes): Greater than 30 minutes spent completing this discharge process including direct patient care, medication reconciliation, documentation, review of labs and images, and coordination of care. Coding Level of Care Code 01314 INP/OBS DISCH >30 MIN Diagnoses Calculus of distal left ureter N20.1 AMIRAH (acute kidney injury) N17.9
== END 2024-01-14 14:52 | disposition home or self-care (01) | DRG 690 ==
LOC: ED 19:55 → 3N 01-14 00:01 → INTOOBSV 01-14 00:01 → SUATTDRO 01-14 00:01 → 3N 01-14 01:06